=== PATIENT | female | born 1975 | race Caucasian/White ===

== ENCOUNTER 2022-10-30 09:06 | Outpatient (CLI) | payer OTHER, SELFPAY ==
--- NOTE | ~2022-10-30 | MMUS_ITS ---
EXAMINATION: MM diagnostic [place] BI w [place], US breast LT limited HISTORY: Bilateral breast pain TECHNIQUE: Craniocaudal, mediolateral, and mediolateral oblique 3-D tomosynthesis images of the breas ts were performed and synthetic 2-D images were generated. CAD analysis was submitted and interpreted . High resolution limited left breast ultrasound was performed. COMPARISON: 01/30/2017 BREAST PARENCHYMAL COMPOSITION: The breasts are heterogeneously dense, which may obscure small masses . FINDINGS: MAMMOGRAPHIC FINDINGS: Right breast: No suspicious mass, calcification, or architectural distortion are identified to sugges t malignancy. There has been no suspicious interval change. Left breast: There is a possible 9 mm obscured low density mass in the far posterior third of the sli ghtly outer breast at the 3:00 location. No suspicious calcification or architectural distortion are identified. ULTRASOUND: There are adjacent cysts in the far posterior third of the outer breast at the 3:00 location correspo nding to the mammographic finding in question. There is a 6 mm oval, circumscribed, parallel, hypoech oic mass with no posterior features or internal vascularity at the 2:00 location. IMPRESSION: 1. Indeterminate mass at the 2:00 location of the left breast. 2. Ultrasound-guided biopsy is recommended. BI-RADS category 4, suspicious findings. Reviewed, dictated and finalized at location A. IMPRESSION: 1. Indeterminate mass at the 2:00 location of the left breast. 2. Ultrasound-guided biopsy is recommended. BI-RADS category 4, suspicious findings.
== END 2022-10-30 09:07 | disposition home or self-care (01) ==
LOC: CHSIMG 09:09
PROVIDERS: PCP Internal Medicine; Visit Provider Nurse Practitioner
DX: N64.4 Mastodynia (principal); R92.8 Other abnormal and inconclusive findings on diagnostic imaging of breast
CPT/HCPCS: 76642; 77062; 77066; G0279

== ENCOUNTER 2022-11-27 10:11 | Outpatient (CLI) | payer OTHER, SELFPAY ==
--- NOTE | ~2022-11-27 | US_ITS ---
US_BCALIMG_US DATE: 11/27/2022 11:14 INDICATION: Left breast 2:00 lesion 7 cm from nipple reported on 10/30/2022 limited left breast ultras ound examination TECHNIQUE: Real time imaging reveals an oval circumscribed sonolucent lesion with through transmissio n posterior enhancement, likely a cyst. Rather than biopsy, a cyst aspiration was performed following sterile preparation of the skin and infiltration of the skin and underlying subcutaneous tissues wit h 1% lidocaine local anesthetic. An 18-gauge spinal needle was introduced through the lesion with ult rasound guidance. The cyst resolved once was punctured with the spinal needle. Subsequent imaging rev ealed no evidence of the lesion. COMPARISON: 10/30/2022 and limited left breast ultrasound IMPRESSION: Ultrasound-guided left breast 2:00 cyst aspiration BI-RADS Category 2: Benign Reviewed, dictated and finalized at Location A. Reviewed, dictated and finalized at location A.
== END 2022-11-27 10:12 | disposition home or self-care (01) ==
PROVIDERS: PCP Internal Medicine; Visit Provider Surgery
DX: R92.8 Other abnormal and inconclusive findings on diagnostic imaging of breast (principal)
CPT/HCPCS: 19000; 76942